=== PATIENT | male | born 1985 | race Hispanic/Latino ===

== ENCOUNTER 2020-03-15 18:03 | Emergency (ER) | payer SELFPAY ==
--- NOTE | 2020-03-15 19:41 | RAD ---
RIGHT FOOT THREE VIEWS: 03/15/20 HISTORY: Swelling along plantar aspect of foot. There are some mild arthritic change at the first metatarsopha langeal joint level. There are no signs of fracture. No spur formation of the calcaneus. Minimal dege nerative changes of the midfoot. IMPRESSION: No acute changes. POS: OFF
== END 2020-03-15 19:56 | disposition home or self-care (01) ==
LOC: ERS 18:03
DX: M79.671 Pain in right foot (principal)